=== PATIENT | female | born 1970 | race Hispanic/Latino ===

== ENCOUNTER → 2021-12-23 | Day surgery (SDC) | payer OTHER ==
[~2021-12-23] VITALS: Ht 165.1 cm; Wt 73.5 kg
[2021-12-23] VITALS (9 sets, daily range): BP systolic 118–157; BP diastolic 66–86
[~2021-12-23] MED LIST: ANCEF ONE; DEXAMETHASONE 10 MG/ML VIAL ONE; DIPRIVAN IV ONE; EXPAREL 266 MG/20 ML VIAL IJ ONE; LACTATED RINGERS 1,000 ML IV SCH; LACTATED RINGERS 1,000 ML ONE; LOSA1TAB25 PO; METO-236 PO; NS 100ML 100 ML IV ONE; POTA10TA32 PO; SENSORCAINE-MPF 0.25% VIAL ONE; SODIUM CHLORIDE IRR BOTTLE IR ONE; SUBLIMAZE IV ONE; SUBLIMAZE ONE; TRAM50TA PO; ULTRAM ONE; ULTRAM PO ONE; WATER ONE; XYLOCAINE 2% 5ML VIAL ONE; ZOFRAN ONE
[2021-12-23 07:52] LABS: CARBON DIOXIDE 31.7 mmol/L (20.0-32)
--- NOTE | 2021-12-23 08:00 | PCM.EKG ---
[facility] Test Date: 2021-12-23 Test Time: 07:57:44 Pat Name: RUI HUETRAS Department: Room: Gender: F Data Control Assistant: MARIN : 1970 Requested By: RAJ CHEN Order Number: [id number] Reading MD: Measurements Intervals [place] Rate: 53 P: 53 MA: 166 QRS: 31 QRSD: 86 T: 37 QT: 458 QTc: 429 Interpretive Statements Sinus bradycardia No previous ECG available for comparison Please click the below link to view image of tracing.
--- NOTE | 2021-12-23 10:56 | OPH ---
DATE OF SURGERY: 12/23/2021 DICTATOR NAME: Ronnie Mancini MD PREOPERATIVE DIAGNOSES: Displaced right lateral malleolus fracture with a tear of the deltoid ligament. POSTOPERATIVE DIAGNOSES: Displaced right lateral malleolus fracture with a tear of the deltoid ligament. OPERATIVE PROCEDURE: Open reduction and internal fixation, right lateral malleolus fracture. SURGEON: Ronnie Mancini M.D. ANESTHESIA: LMA. TOURNIQUET TIME: 46 minutes at 300 mmHg. DRAINS: None. BLOOD LOSS: 10 mL. DESCRIPTION OF INDICATIONS: The patient is a 51-year-old female that fell from an attic approximately a week ago injuring the right ankle. She was initially seen in the Emergency Room and placed in a boot. She was seen in my office earlier this week and noted to have a lateral malleolus fracture with widening of the mortise. The patient's neurovascular exam was normal. She was taken to the operating room today for open reduction and internal fixation. DESCRIPTION OF PROCEDURE: The patient was placed on the operating table in the supine position and given LMA anesthetic. The right thigh was padded and a tourniquet was applied. The right lower extremity was then sterilely prepped and draped. The leg was exsanguinated with an Esmarch and the tourniquet was inflated to 300 mmHg. Lateral incision was made about the lateral malleolus. The incision was taken through the skin and the subcutaneous tissue down to the periosteum. The fracture was exposed and any hematoma was removed. The fracture was reduced with a bone clamp and then we stabilized the fracture with a 5-hole third tubular plate using 3 cortical screws proximally and 2 cancellous screws distally. Final AP and lateral views showed acceptable placement of the hardware and good reduction of the fracture. The mortise was well reduced. The patient then had the wounds irrigated. The subcutaneous was closed with a 2-0 Monocryl in an interrupted [place] manner. The skin was closed with 3-0 Ethilon in a horizontal mattress method. A compressive dressing and a U splint was applied. The tourniquet was released. The patient was extubated in the operating room and sent to recovery in stable condition. Ronnie Mancini MD DR: SOLEDAD/JEANNETTE TID: [id number] RECEIPT: [id number]
--- NOTE | 2021-12-23 11:05 | DIREP ---
PROCEDURE:XRAY ANKLE MIN 3VWS-RT COMPARISON:None. INDICATIONS:POST-OP ORIF RT ANKLE FINDINGS: BONES:There is a lateral malleable plate with multiple transversely oriented fixating screws stabilizing the distal fibular fracture anatomic alignment JOINTS:Normal. SOFT TISSUES:Lateral soft tissue swelling. OTHER:Overlying cast. CONCLUSION:Orthopedic hardware fixation of the lateral malleolus fracture in anatomic alignment Dictated by: Levy Armas M.D. on 12/23/2021 at 10:59 AM
== END | disposition home or self-care (01) ==
LOC: SURG 07:09
PROVIDERS: ATTEND Orthopaedic Surgery
DX: S82.61XA Displaced fracture of lateral malleolus of right fibula, initial encounter for closed fracture (principal); I10 Essential (primary) hypertension; Z80.9 Family history of malignant neoplasm, unspecified; Z95.5 Presence of coronary angioplasty implant and graft; Z98.890 Other specified postprocedural states; Z79.899 Other long term (current) drug therapy; W13.2XXA Fall from, out of or through roof, initial encounter; Y93.89 Activity, other specified; Y92.89 Other specified places as the place of occurrence of the external cause
CPT/HCPCS: 27792; 36415; 64447; 73610; 76942; 80048; 84703; 93005; A4217; C1713 ×4; J0690; J1100; J2001; J2405; J3010 ×2; J3490 ×2; J7120; 76000; C9290

== ENCOUNTER → 2022-01-26 | Outpatient (CLI) | payer OTHER ==
[~2022-01-26] MED LIST changes: -ANCEF ONE; -DEXAMETHASONE 10 MG/ML VIAL ONE; -DIPRIVAN IV ONE; -EXPAREL 266 MG/20 ML VIAL IJ ONE; -LACTATED RINGERS 1,000 ML IV SCH; -LACTATED RINGERS 1,000 ML ONE; -NS 100ML 100 ML IV ONE; -SENSORCAINE-MPF 0.25% VIAL ONE; -SODIUM CHLORIDE IRR BOTTLE IR ONE; -SUBLIMAZE IV ONE; -SUBLIMAZE ONE; -ULTRAM ONE; -ULTRAM PO ONE; -WATER ONE; -XYLOCAINE 2% 5ML VIAL ONE; -ZOFRAN ONE
--- NOTE | 2022-01-26 15:58 | DIREP ---
PROCEDURE:XRAY ANKLE MIN 3VWS-RT COMPARISON:None. INDICATIONS:RIGHT ANKLE FRACTURE FINDINGS: BONES:Lateral malleolus fracture still visible. Internal fixation lateral malleolus fracture seen. On the lateral view lateral malleolus fracture projects over the posterior malleolus, probably artifact of projection, if there is clinical suspicion of a new posterior malleolus fracture CT of the ankle could be performed. JOINTS:Normal. SOFT TISSUES:Normal. OTHER:No additional findings. CONCLUSION: Lateral malleolus fracture still visible. Internal fixation of the lateral malleolus fracture again seen. On the lateral view the lateral malleolus fracture presumably projects over the posterior malleolus, while this is probably artifact of projection and considering a new fracture is not seen on the frontal view, if there is clinical suspicion of a new posterior malleolus fracture CT of the ankle could be performed. Dictated by: Franco Garrett MD on 01/26/2022 at 03:49 PM
== END | disposition home or self-care (01) ==
LOC: RAD 13:52
PROVIDERS: ATTEND Orthopaedic Surgery
DX: S82.61XA Displaced fracture of lateral malleolus of right fibula, initial encounter for closed fracture (principal); X58.XXXA Exposure to other specified factors, initial encounter; Y93.89 Activity, other specified; Y92.89 Other specified places as the place of occurrence of the external cause; Y99.8 Other external cause status
CPT/HCPCS: 73610-RT

== ENCOUNTER → 2022-02-23 | Outpatient (CLI) | payer OTHER ==
--- NOTE | 2022-02-23 17:49 | DIREP ---
PROCEDURE:XRAY KNEE 2 VWS-LT COMPARISON:None. INDICATIONS:LEFT KNEE PAIN FINDINGS: BONES:Normal. JOINTS:Normal. SOFT TISSUES:Normal. OTHER:No additional findings. CONCLUSION:Normal examination. Dictated by: Miguel Garibay MD on 02/23/2022 at 05:47 PM
--- NOTE | 2022-02-23 18:21 | DIREP ---
PROCEDURE:XRAY ANKLE MIN 3VWS-RT COMPARISON:[facility], CR, XRAY ANKLE MIN 3VWS-RT, 12/23/2021, 10:44 AM. [facility], CR, XRAY ANKLE MIN 3VWS-RT, 01/26/2022, 02:11 PM. INDICATIONS:RIGHT ANKLE FRACTURE FINDINGS: BONES:Open reduction internal fixation of the distal fibula with a lateral plate and screw construct. There is no evidence of hardware failure. Fracture lucency remains visible. No new fracture is seen. Small plantar calcaneal spur. JOINTS:Normal. SOFT TISSUES:Lateral ankle soft tissue swelling is similar to prior. OTHER:No additional findings. CONCLUSION:No significant change in appearance of the lateral malleolar fracture status post open reduction internal fixation without evidence of hardware failure. Dictated by: Mason Meadows M.D. on 02/23/2022 at 06:16 PM
== END | disposition home or self-care (01) ==
LOC: RAD 16:54
PROVIDERS: ATTEND Orthopaedic Surgery
DX: S82.891A Other fracture of right lower leg, initial encounter for closed fracture (principal); M25.562 Pain in left knee; X58.XXXA Exposure to other specified factors, initial encounter; Y93.89 Activity, other specified; Y92.89 Other specified places as the place of occurrence of the external cause; Y99.8 Other external cause status
CPT/HCPCS: 73560-LT; 73610-RT

== ENCOUNTER → 2022-07-21 | Outpatient (CLI) | payer OTHER | END | disposition home or self-care (01) | LOC: NPLAB 14:08 | PROVIDERS: ATTEND Specialist | DX: U07.1 COVID-19 (principal) | CPT/HCPCS: 87637 ==

== ENCOUNTER → 2022-11-24 | Outpatient (CLI) | payer OTHER ==
[~2022-11-24] MED LIST changes: -POTA10TA32 PO; +[UNRECOGNIZED DRUG - CODE] PO
[2022-11-24 15:47] LABS: BILIRUBIN,URINE NEGATIVE (NEGATIVE); UROBILINOGEN,URINE 0.2 E.U./dL (0.2)
== END | disposition home or self-care (01) ==
LOC: LAB 15:31
PROVIDERS: ATTEND Specialist
DX: N39.498 Other specified urinary incontinence (principal); R35.1 Nocturia; R36.0 Urethral discharge without blood
CPT/HCPCS: 81001; 87077; 87086; 87186

== ENCOUNTER → 2023-02-03 | Outpatient (CLI) | payer OTHER ==
[2023-02-03 15:34] LABS: MEAN CORP HGB 31.6 pg (26-34); RED CELL DISTRIBUTION WIDTH 12.5 % (11.5-14.5)
[2023-02-03 16:01] LABS: CARBON DIOXIDE 29.6 mmol/L (20.0-32)
--- NOTE | 2023-02-03 19:43 | DIREP ---
PROCEDURE:CHEST 2 VIEWS COMPARISON:None. INDICATIONS:PRE-OP FINDINGS: LUNGS/PLEURA:No significant pulmonary parenchymal abnormalities. No effusions. VASCULATURE:Normal. Unremarkable pulmonary vasculature. CARDIAC:Normal. No cardiac silhouette abnormality or cardiomegaly. MEDIASTINUM:Proximal descending thoracic aortic stent graft. BONES:Evidence of prior left rib fixation OTHER:Negative. CONCLUSION: 1. No evidence for acute cardiopulmonary disease. Dictated by: Hernando Ramirez MD on 02/03/2023 at 07:40 PM
== END | disposition home or self-care (01) ==
LOC: LAB 15:15
PROVIDERS: ATTEND Surgery
DX: Z01.818 Encounter for other preprocedural examination (principal)
CPT/HCPCS: 36415; 71046; 80053; 84443; 85027; 85610; 85730; 86703

== ENCOUNTER → 2023-02-08 | Outpatient (CLI) | payer OTHER ==
--- NOTE | 2023-02-08 15:26 | PCM.EKG ---
[facility] Test Date: 2023-02-08 Test Time: 15:16:24 Pat Name: RUI HUERTAS Department: Patient ID: [id number] Room: Gender: F Public Records Officer: : 1970 Requested By: PHYSICIAN CRISTI Order Number: [id number] Reading MD: Measurements Intervals [place] Rate: 54 P: 60 PA: 151 QRS: 43 QRSD: 109 T: 57 QT: 440 QTc: 417 Interpretive Statements Sinus rhythm RSR' in V1 or V2, right VCD or RVH Compared to ECG 12/23/2021 07:57:44 Right ventricular hypertrophy now present RSR' in V1 or V2 now present Sinus bradycardia no longer present Please click the below link to view image of tracing.
== END | disposition home or self-care (01) ==
LOC: RT 15:03
PROVIDERS: ATTEND Surgery
DX: Z01.818 Encounter for other preprocedural examination (principal); I51.7 Cardiomegaly; R00.1 Bradycardia, unspecified
CPT/HCPCS: 93005

== ENCOUNTER → 2024-01-10 | Outpatient (CLI) | payer OTHER ==
[2024-01-10 15:19] LABS: HEMATOCRIT(ML) 42.9 % (36.0-46.0); HEMOGLOBIN 14.4 g/dL (12.0-15.0); MEAN CORP HGB 31.9 pg (26-34); MEAN CORP HGB CONCENTRATION 33.6 g/dL (33-36.5); MEAN CORP VOLUME 95.1 fL (78-100); RED BLOOD CELL 4.51 10^6/uL (4.00-5.20); RED CELL DISTRIBUTION WIDTH 13.1 % (11.5-14.5); WHITE BLOOD CELL 5.9 10^3/uL (4.5-11.0)
[2024-01-10 15:33] LABS: INR 0.9; PROTHROMBIN PROTIME 9.9 SEC (9.7-11.6)
[2024-01-10 15:44] LABS: ALBUMIN(ML) 3.6 g/dL (3.4-5.0); ALBUMIN/GLOBULIN RATIO 0.818; ANION GAP 12.1; BUN/CREATININE RATIO 24.41 (10.0-20.0); CALCIUM 8.9 mg/dL (8.4-10.5); CARBON DIOXIDE 30.4 mmol/L (20.0-32); CREATININE SERUM 0.86 mg/dL (0.59-1.40); EST GFR, NON-AA 68.8 (>/=60); POTASSIUM 3.5 mmol/L (3.6-5.2)
== END | disposition home or self-care (01) ==
LOC: RAD 14:54
PROVIDERS: ATTEND Surgery
DX: Z01.818 Encounter for other preprocedural examination (principal); M47.816 Spondylosis without myelopathy or radiculopathy, lumbar region; I10 Essential (primary) hypertension; R00.1 Bradycardia, unspecified
CPT/HCPCS: 36415; 71046; 80053; 84443; 85027; 85610; 85730; 86703; 93005